=== PATIENT | female | born 1980 | race Caucasian/White ===

== ENCOUNTER 2018-02-16 14:55 | Emergency (ER) | payer OTHER, SELFPAY ==
[2018-02-16 15:53] LABS: Urine Blood TRACE (NEG); Urine Glucose NEGATIVE (NEG); Urine Protein NEGATIVE (NEG); Urine Specific Gravity <1.005 (1.005-1.030); Urine pH 6.5 (5.0-7.0)
[2018-02-16 16:14] LABS: Absolute Lymphocytes (CBC) 2.5 K/uL (0.7-4.9); Absolute Monocytes 0.5 K/uL (0.1-1.3); Absolute Neutrophil 9.7 K/uL (1.8-8.0); Basophils % 0.7 % (0-1.3); Eosinophils % 0.7 % (0-4.4); Hematocrit 43.6 % (36.0-45.0); Lymphocytes % 19.1 % (15.3-44.8); MCH 31.4 pg (27.0-35.0); MCV 95.3 fL (80-100); MPV 8.3 fL (7.6-11.3); Monocytes % 4.1 % (3.3-12.3); RBC Red Blood Cell Count 4.57 M/uL (3.86-4.86)
[2018-02-16 16:23] LABS: Bicarbonate 27 mEq/L (21-31); Glucose Level 84 mg/dL (65-120); Potassium 3.9 mEq/L (3.6-5.0); Sodium Level 135 mEq/L (135-145)
[2018-02-16 16:24] LABS: BUN Blood Urea Nitrogen 7 mg/dL (6-20)
--- NOTE | 2018-02-16 18:55 | RAD REPORT ---
EXAM DESCRIPTION: US - Transvaginal OB - 02/16/2018 3:56 pm CLINICAL HISTORY: with abdominal pain and vaginal bleeding COMPARISON: None. FINDINGS: The uterus measures 8 x 6 x 7 centimeters. A gestational sac is present within the endom etrium. Within this is a yolk sac and pole with a crown-rump length 0.6 centimeters is present. Cardiac activity was not visualized The right ovary is normal in size and echotexture. The left ovary was not seen. No significant free f luid is seen. IMPRESSION: Intrauterine an estimated gestational age 6 weeks 3 days WESLEY 10/09/2018. This may represent a normal in which the heart beat is not detected secondary to the early gesta tion. Follow up endovaginal sonogram in 1 week is recommended.
--- NOTE | 2018-02-16 19:26 | EDPHYS ---
Physician Documentation [facility] Name: Albina Cam Age: 38 yrs Sex: Female : 1980 Arrival Date: 02/16/2018 Time: 15:00 Bed 25 Private MD: Charly Corbin B ED Physician Ramone Bass HPI: 02/16 15:43 This 38 yrs old Female presents to ER via Ambulatory with complaints of pm1 Vaginal Bleeding, + Preg <12wks. 15:43 The patient presents to the emergency department with vaginal bleeding, described as pm1 spotting, with no clots. The estimated gestational age is 8 weeks. course: care: private OB physician, Dr. Jarquin, seen today, Ultrasound: the patient has not had an ultrasound, Risk/complications: no obvious risks or complications are appreciated. Previous pregnancies: in previous pregnancies patient has had vaginal delivery. Associated signs and symptoms: Pertinent positives: abdominal pain, Back pain, Pertinent negatives: chest pain, diarrhea, dysuria, fever, nausea, vomiting. The patient has not experienced similar symptoms in the past. The patient has been recently seen by a physician: Dr. Jarquin, prior to arrival for the same presenting ER complaint. 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 - Social history:: Smoking status: Patient/guardian denies using tobacco, the patient reports quitting approximately 0 years ago. - Ebola Screening: : Patient negative for fever greater than or equal to 101.5 degrees Fahrenheit, and additional compatible Ebola Virus Disease symptoms. ROS: 15:43 Constitutional: Negative for fever, chills, and weight loss, Eyes: Negative for injury, pm1 pain, redness, and discharge, ENT: Negative for injury, pain, and discharge, Neck: Negative for injury, pain, and swelling, Cardiovascular: Negative for chest pain, palpitations, and edema, Respiratory: Negative for shortness of breath, cough, wheezing, and pleuritic chest pain. 15:43 Back: Negative for injury and pain, MS/Extremity: Negative for injury and deformity, Skin: Negative for injury, rash, and discoloration, Neuro: Negative for headache, weakness, numbness, tingling, and seizure. 15:43 Abdomen/GI: Positive for abdominal cramps, Negative for nausea, vomiting, and diarrhea. 15:43 : Positive for vaginal bleeding, Negative for burning with urination, vaginal discharge. Exam: 15:43 Constitutional: This is a well developed, well nourished patient who is awake, alert, pm1 and in no acute distress. Head/Face: Normocephalic, atraumatic. Eyes: Pupils equal round and reactive to light, extra-ocular motions intact. Lids and lashes normal. Conjunctiva and sclera are non-icteric and not injected. Cornea within normal limits. Periorbital areas with no swelling, redness, or edema. ENT: Nares patent. No nasal discharge, no septal abnormalities noted. Tympanic membranes are normal and external auditory canals are clear. Oropharynx with no redness, swelling, or masses, exudates, or evidence of obstruction, uvula midline. Mucous membranes moist. Neck: Trachea midline, no thyromegaly or masses palpated, and no cervical lymphadenopathy. Supple, full range of motion without nuchal rigidity, or vertebral point tenderness. No Meningismus. Chest/axilla: Normal chest wall appearance and motion. Nontender with no deformity. No lesions are appreciated. Cardiovascular: Regular rate and rhythm with a normal S1 and S2. No gallops, murmurs, or rubs. No pulse deficits. Respiratory: Lungs have equal breath sounds bilaterally, clear to auscultation and percussion. No rales, rhonchi or wheezes noted. No increased work of breathing, no retractions or nasal flaring. Abdomen/GI: Soft, non-tender, with normal bowel sounds. No distension or tympany. No guarding or rebound. No evidence of tenderness throughout. Back: No spinal tenderness. No costovertebral tenderness. Full range of motion. Skin: Warm, dry with normal turgor. Normal color with no rashes, no lesions, and no evidence of cellulitis. MS/ Extremity: Pulses equal, no cyanosis. Neurovascular intact. Full, normal range of motion. 15:43 Neuro: Orientation: is normal, Motor: moves all fours. Vital Signs: 15:17 BP 121 / 84; Pulse 83; Resp 17; Temp 99.2; Pulse Ox 98% on R/A; aa5 17:44 BP 122 / 72; Pulse 72; Resp 18; Pulse Ox 100% on R/A; aj1 19:42 BP 131 / 89; Pulse 70; Resp 18; Pulse Ox 98% on R/A; aj1 MDM: 15:23 Patient medically screened. pm1 15:47 Data reviewed: vital signs. Data interpreted: Pulse oximetry: on room air is 98 %. pm1 Interpretation: normal. 19:02 Counseling: I had a detailed discussion with the patient and/or guardian regarding: the pm1 historical points, exam findings, and any diagnostic results supporting the discharge/admit diagnosis, lab results, radiology results, the need for outpatient follow up, an OB/Gyne specialist, to return to the emergency department if symptoms worsen or persist or if there are any questions or concerns that arise at home. 02/16 15:30 Order name: Quantitative Hcg; Complete Time: 17:00 pm1 02/16 15:30 Order name: Abo/rh Typing pm1 02/16 15:30 Order name: Basic Metabolic Panel; Complete Time: 17:00 pm1 02/16 15:30 Order name: CBC with Diff; Complete Time: 17:00 pm1 02/16 15:45 Order name: Urine Dipstick--Ancillary (enter results); Complete Time: 17:00 bd 02/16 15:45 Order name: Urine --Ancillary (enter results); Complete Time: 17:00 bd 02/16 15:30 Order name: Urine Test (obtain specimen); Complete Time: 16:02 pm1 02/16 15:30 Order name: IV Saline Lock; Complete Time: 16:02 pm1 02/16 15:30 Order name: Labs collected and sent; Complete Time: 16:02 pm1 02/16 15:30 Order name: NPO; Complete Time: 15:34 pm1 02/16 15:30 Order name: US Transvaginal Ob; Complete Time: 18:58 pm1 02/16 18:21 Order name: Antibody Screen EDCO 02/16 18:21 Order name: Rhogam EDCO 02/16 15:30 Order name: Urine Dipstick-Ancillary (obtain specimen); Complete Time: 16:02 pm1 Administered Medications: 19:08 Drug: RhoGAM (Human) 300 mcg Route: IM; Site: right deltoid; aj1 19:42 Follow up: Response: No adverse reaction aj1 Point of Care Testing: Urine : 19:42 hCG Reading: Positive; aj1 Disposition: 02/16/18 19:25 Discharged to Home. Impression: Threatened . - Condition is Stable. - Discharge Instructions: Threatened Miscarriage, Pelvic Rest. - Medication Reconciliation Form, Thank You Letter form. - Follow up: Emergency Department; When: As needed; Reason: Worsening of condition. Follow up: Charly Corbin; When: 2 - 3 days; Reason: Recheck today's complaints, Continuance of care, Re-evaluation by your physician. - Problem is new. - Symptoms have improved. Addendum: 02/18/2018 12:08 Co-signature as Attending Physician, Ramone Bass MD. g s Signatures: Dispatcher [employer] EDMS Evelin Hernandez RN RN aj1 Lanie Giordano RN RN aa5 Deshawn Fortune, CHIEF ADMINISTRATIVE OFFICER CHIEF ADMINISTRATIVE OFFICER pm1 Ramone Bass MD MD Corrections: (The following items were deleted from the chart) 02/16 19:43 19:25 02/16/2018 19:25 Discharged to Home. Impression: Threatened . Condition aj1 is Stable. Discharge Instructions: Threatened Miscarriage, Pelvic Rest. Forms are Medication Reconciliation Form, Thank You Letter, Antibiotic Education, Prescription Opioid Use. Follow up: Emergency Department; When: As needed; Reason: Worsening of condition. Follow up: Charly Corbin; When: 2 - 3 days; Reason: Recheck today's complaints, Continuance of care, Re-evaluation by your physician. Problem is new. Symptoms have improved. pm1
--- NOTE | 2018-02-16 19:26 | ER ---
Nurse's Notes [facility] Name: Albina Cam Age: 38 yrs Sex: Female : 1980 Arrival Date: 02/16/2018 Time: 15:00 Bed 25 Private MD: Charly Corbin B Diagnosis: Threatened Presentation: 02/16 15:10 Presenting complaint: Patient states: vaginal spotting that began today. Pt reports aa5 mild abd cramping. Pt states "I had a positive test about 4 weeks ago" Denies abd pain/cramping. Transition of care: patient was not received from another setting of care. Onset of symptoms was February 16, 2018. Risk Assessment: Do you want to hurt yourself or someone else? Patient reports no desire to harm self or others. Initial Sepsis Screen: Does the patient meet any 2 criteria? No. Patient's initial sepsis screen is negative. Does the patient have a suspected source of infection? No. Patient's initial sepsis screen is negative. Care prior to arrival: None. 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 - Social history:: Smoking status: Patient/guardian denies using tobacco, the patient reports quitting approximately 0 years ago. - Ebola Screening: : Patient negative for fever greater than or equal to 101.5 degrees Fahrenheit, and additional compatible Ebola Virus Disease symptoms. Screenin:31 Abuse screen: Denies threats or abuse. Denies injuries from another. Nutritional aj1 screening: No deficits noted. Tuberculosis screening: No symptoms or risk factors identified. 19:43 Fall Risk None identified. aj1 Assessment: 15:31 Obstetrical Assessment: Patient reports back pain. General: Appears in no apparent aj1 distress. comfortable. Pain: Denies pain. Neuro: Level of Consciousness is awake, alert, obeys commands, Oriented to person, place, time, situation, Speech is normal, Facial symmetry appears normal. Cardiovascular: Patient's skin is warm and dry. Respiratory: Airway is patent Respiratory effort is even, unlabored. GI: No signs and/or symptoms were reported involving the gastrointestinal system. : Reports vaginal bleeding that is spotty. EENT: No signs and/or symptoms were reported regarding the EENT system. Derm: No signs and/or symptoms reported regarding the dermatologic system. Skin is pink, warm \\T\\ dry. normal. Musculoskeletal: No signs and/or symptoms reported regarding the musculoskeletal system. Circulation, motion, and sensation intact. 16:54 Reassessment: Patient appears in no apparent distress at this time. No changes from aj1 previously documented assessment. Patient and/or family updated on plan of care and expected duration. Pain level reassessed. Patient is alert, oriented x 3, equal unlabored respirations, skin warm/dry/pink. 17:44 Reassessment: Patient appears in no apparent distress at this time. No changes from aj1 previously documented assessment. Patient and/or family updated on plan of care and expected duration. Pain level reassessed. Patient is alert, oriented x 3, equal unlabored respirations, skin warm/dry/pink. 18:45 Reassessment: Patient appears in no apparent distress at this time. No changes from aj1 previously documented assessment. Patient and/or family updated on plan of care and expected duration. Pain level reassessed. Patient is alert, oriented x 3, equal unlabored respirations, skin warm/dry/pink. 19:34 Reassessment: Patient appears in no apparent distress at this time. No changes from aj1 previously documented assessment. Patient and/or family updated on plan of care and expected duration. Pain level reassessed. Patient is alert, oriented x 3, equal unlabored respirations, skin warm/dry/pink. Vital Signs: 15:17 BP 121 / 84; Pulse 83; Resp 17; Temp 99.2; Pulse Ox 98% on R/A; aa5 17:44 BP 122 / 72; Pulse 72; Resp 18; Pulse Ox 100% on R/A; aj1 19:42 BP 131 / 89; Pulse 70; Resp 18; Pulse Ox 98% on R/A; aj1 ED Course: 15:00 Patient arrived in ED. sb2 15:00 Charly Corbin MD is Private Physician. sb2 15:17 Triage completed. aa5 15:18 Deshawn Fortune NP is PHCP. pm1 15:18 Ramone Bass MD is Attending Physician. pm1 15:18 Arm band placed on Patient placed in an exam room, on a stretcher. aa5 15:20 Evelin Hernandez RN is Primary Nurse. aj1 15:31 Patient has correct armband on for positive identification. Bed in low position. Call aj1 light in reach. Side rails up X 1. 15:31 No provider procedures requiring assistance completed. aj1 15:45 Initial lab(s) drawn, by me, sent to lab. Inserted saline lock: 20 gauge in left aj1 antecubital area, using aseptic technique. Blood collected. 15:56 US Transvaginal Ob In Process Unspecified. EDMS 15:58 Ultrasound completed. Patient tolerated well. Patient moved back from ultrasound. lc3 19:25 Charly Corbin MD is Referral Physician. pm1 19:34 IV discontinued, intact, bleeding controlled, No redness/swelling at site. Pressure aj1 dressing applied. Administered Medications: 19:08 Drug: RhoGAM (Human) 300 mcg Route: IM; Site: right deltoid; aj1 19:42 Follow up: Response: No adverse reaction aj1 Point of Care Testing: Urine : 19:42 hCG Reading: Positive; aj1 Outcome: 19:25 Discharge ordered by . pm1 19:42 Discharged to home ambulatory. aj1 19:42 Condition: good 19:42 Discharge instructions given to patient, Instructed on discharge instructions, follow up and referral plans. Demonstrated understanding of instructions, follow-up care. 19:43 Patient left the ED. aj1 Signatures: Dispatcher [employer] EDNM Evelin Hernandez, NADEEN RN aj1 Lanie Giordano RN RN aa5 Farhat Brock Patrick, NP SCHOOL CLEANER pm1 Jess De La O2
[2018-02-16 20:21] VITALS: TEMP 99.2
[2018-02-16 20:23] VITALS: BP 131/89; O2SAT 98
== END 2018-02-16 19:43 | disposition home or self-care (01) ==
LOC: ER 14:55
DX: O20.0 Threatened abortion (principal); Z3A.08 8 weeks gestation of pregnancy; Z87.891 Personal history of nicotine dependence
CPT/HCPCS: 36415; 76817; 80048; 81003; 81025; 84702; 85025; 86850; 86900; 86901; 96372; 99284; J2790

== ENCOUNTER 2018-02-25 07:04 | Day surgery (SDC) | payer OTHER ==
--- NOTE | 2018-02-24 13:40 | PREOPHP ---
Date of Admission: 02/25/2018 History Of Present Illness: A 38-year-old, 5, para 3, miscarriage 1, now with second miscarr iage during the first 12 weeks of . Options given including expectant management, infection , blood loss, anesthetic complications, injury to bladder, bowel, ureter, postoperative complications , clots in legs, and pneumonia. The patient wishes to proceed with D and C. She is Rh negative and has received one RhoGAM shot, but depending upon amount of bleeding, we may give another one while sh selvin is in the hospital. Family History: Diabetes in one of her aunts and her mother has hypertension. Past Surgical History: The patient has had wrist surgeries x2, ankle surgery x1, and a D and C in for a miscarriage. Social History: Does not smoke. Physical Examination: HEENT: Clear. Pupils equal, round, and reactive to light and accommodation. Conjunctivae well perf used. No oral, lingual, or buccal lesions. Chest and Lungs: Clear. Heart: Without murmurs, thrills, heaves, or rubs. Breasts: Not examined. Abdomen: Clear uterus is in the 8-9 weeks size. Extremities: Clear without edema, cyanosis, or clubbing. Assessment And Plan: We will bring her back this afternoon for laminaria insertion and then proceed with D and C tomorrow. Full preoperative talk. SERGEY/LUIS ALFREDO Voice ID: [id number]
[2018-02-24 14:04] LABS: Absolute Lymphocytes (CBC) 2.2 K/uL (0.7-4.9); Absolute Monocytes 0.5 K/uL (0.1-1.3); Absolute Neutrophil 7.4 K/uL (1.8-8.0); Basophils % 0.7 % (0-1.3); Eosinophils % 1.1 % (0-4.4); Hematocrit 37.6 % (36.0-45.0); Lymphocytes % 21.1 % (15.3-44.8); MCH 31.8 pg (27.0-35.0); MCV 94.9 fL (80-100); MPV 8.2 fL (7.6-11.3); Monocytes % 4.9 % (3.3-12.3); RBC Red Blood Cell Count 3.96 M/uL (3.86-4.86)
[2018-02-24 14:18] LABS: Urine Appearance CLEAR; Urine Bilirubin NEGATIVE (NEG); Urine Blood 3+ (NEG); Urine Color YELLOW; Urine Glucose NEGATIVE (NEG); Urine Protein NEGATIVE (NEG); Urine Urobilinogen 0.2 mg/dL (0.2-1.0)
[2018-02-24 14:22] LABS: Urine Microscopic Reflex ORDER UMIC
[2018-02-24 14:29] LABS: Protime INR 0.94
[2018-02-24 14:56] LABS: Urine Bacteria <20 /HPF (<20); Urine RBC >50 /HPF (NONE SEEN)
[2018-02-24 14:57] LABS: Urine Culture Reflex Order NOT NEEDED
--- NOTE | 2018-02-24 17:34 | PREOPHP ---
Date of Admission: 02/25/2018 Addendum: The patient returns this afternoon for laminaria insertion. Cervix cleaned with iodine an d laminaria tent small size, placed packing 4 x 4, placed into the vagina to secure it. She will keagan selvin doxycycline tonight before bedtime. We have given her 6 total. We will also give her Cytotec to doris montalvo taken after she gets home from the hospital tomorrow and some tramadol for the cramping she is jose antunez. Full discussion. H and P has already been dictated. SERGEY/LUIS ALFREDO Voice ID: [id number]
[~2018-02-25 07:04] MED LIST: OXYTOCIN/LR 20 UNIT/1,000 ML BAG IV SCH
[2018-02-25] MEDS ORDERED: OXYTOCIN 10 UNIT/ML ML IV ONE (07:42)
[2018-02-25] MEDS ORDERED: SILVER NITRATE 1 APPL TOP ONE (07:42)
[2018-02-25] MEDS ORDERED: METHYLERGONOVINE 0.2MG/ML AMP IM ONE (07:42)
[2018-02-25] MEDS ORDERED: CEFAZOLIN/SWI 1gm 1 GM/10 ML SYR ONE (08:48)
[2018-02-25] MEDS ORDERED: FENTANYL CITR 100 MCG/2 ML ONE (08:50)
[2018-02-25] MEDS ORDERED: MIDAZOLAM HCL 2 MG/2 ML INJ ONE (08:50)
[2018-02-25] MEDS ORDERED: PROPOFOL 200 MG/20 ML VIAL IV ONE (08:50)
[2018-02-25] MEDS ORDERED: MEPERIDINE HCL 25 MG/0.5 ML ONE (09:32)
[2018-02-25] MEDS ORDERED: HYDROCODONE/APAP 10/325 TAB ONE (10:52)
--- NOTE | 2018-02-25 11:19 | OP ---
Surgeon: Charly Corbin MD Indications: Albina Cam is a 38-year-old female with first trimester embryonic loss. Full discus aj about infection, blood loss, anesthetic complications, injury to bladder, bowel, ureter, postope rative complications, clots in legs, pneumonia. Expectant management also discussed. The patient is Rh negative and will receive RhoGAM before she leaves. Procedure: General anesthesia was employed, endotracheal intubation. Laminaria tent and packing kriss clark the evening prior were removed. Cervix already admitted with the largest dilator. A 10-mm curve d suction curette was used to evacuate the obviously necrotic intrauterine contents. A sharp curette ment followed by a second suction and a second sharp curettement. Minimal blood loss less than 25 cc . The patient tolerated all procedures well and was transferred to the recovery room in good conditi on. Final Diagnoses: First trimester embryonic loss, suction curettage for uterine evacuation and RhoGAM to be administered. SERGEY/LUIS ALFREDO Voice ID: [id number] Report ID: [id number]
[2018-02-25 11:35] VITALS: BP 115/79; TEMP 98.5; O2SAT 100
--- NOTE | 2018-02-25 18:38 | OP ---
Surgeon: Charly Corbin MD Hospital Course: The patient underwent suction and curettage for uterine evacuation and first trimes ter embryonic demise. She is Rh negative and will receive RhoGAM before she leaves. Had only 25 cc or less blood loss. Tolerated all procedures well. She will continue to take cytotoxic 1 every 4 ho urs for 5 doses when she leaves the hospital. She has had doxycycline last night and will take 5 mor e 1 every 12 hours. She has also had tramadol for postoperative pain in the form of cramping, althou gh I think that will be minimal. She is to report back to my office in 1 week to report any temperat ure elevation of 100 degrees or greater, severe pain, or any other type of problems. Final Diagnosis: First trimester embryonic demise, suction and curettage for uterine evacuation, gen eral anesthesia. RhoGAM administered. SERGEY/LUIS ALFREDO Voice ID: [id number] Report ID: [id number]
== END 2018-02-25 11:20 | disposition home or self-care (01) ==
LOC: OR 07:04
PROVIDERS: ATTEND Specialist
PROC: 10D17ZZ Extraction of Products of Conception, Retained, Via Natural or Artificial Opening (ICD-10-PCS; principal; 2018-02-25 08:15)
DX: O02.1 Missed abortion (principal); Z67.91 Unspecified blood type, Rh negative; Z29.13 Encounter for prophylactic Rho(D) immune globulin; Z83.3 Family history of diabetes mellitus; Z82.49 Family history of ischemic heart disease and other diseases of the circulatory system
CPT/HCPCS: 36415; 81003; 81015; 85025; 85461; 85610; 86850; 86870; 86900; 86901; 88305; J0690; J2175; J2210; J2250; J2590; J2790; J3010

== ENCOUNTER 2019-02-23 00:22 | Inpatient (IN) | payer OTHER ==
[2019-02-23] MEDS ORDERED: MEPERIDINE HCL 25 MG/0.5 ML IV PRN (04:20)
[2019-02-23] MEDS ORDERED: Ringers Lactate 1,000 ML IV PRN (04:20)
[2019-02-23] MEDS ORDERED: PROMETHAZINE 25 MG/ML VIAL IM PRN (04:20)
[2019-02-23] MEDS ORDERED: CARBOPROST TROME 250 MCG/ML IM PRN (04:20)
[2019-02-23] MEDS ORDERED: BUTORPHANOL 1 MG/ML INJ IV PRN (04:20)
[2019-02-23] MEDS ORDERED: OXYTOCIN/LR 20 UNIT/1,000 ML BAG IV SCH ×2 (05:00→16:00)
[2019-02-23] MEDS ORDERED: Ringers Lactate 1,000 ML IV SCH (05:00)
[2019-02-23] MEDS ORDERED: METHYLERGONOVINE 0.2MG/ML AMP IM ONE (05:35)
[2019-02-23 07:11] LABS: RPR Titer ND
[2019-02-23 07:15] LABS: Urine Appearance CLEAR; Urine Bilirubin NEGATIVE (NEG); Urine Blood NEGATIVE (NEG); Urine Color YELLOW; Urine Glucose NEGATIVE (NEG); Urine Protein NEGATIVE (NEG); Urine Specific Gravity <=1.005 (1.005-1.030); Urine Urobilinogen 0.2 mg/dL (0.2-1.0); Urine pH 6.5 (5.0-7.0)
[2019-02-23 07:20] LABS: Absolute Lymphocytes (CBC) 2.4 K/uL (0.7-4.9); Absolute Monocytes 0.5 K/uL (0.1-1.3); Basophils % 0.3 % (0-1.3); Eosinophils % 1.1 % (0-4.4); Hematocrit 38.5 % (36.0-45.0); Lymphocytes % 26.2 % (15.3-44.8); MPV 9.1 fL (7.6-11.3); Monocytes % 5.8 % (3.3-12.3); RBC Red Blood Cell Count 4.11 M/uL (3.86-4.86)
[2019-02-23 07:45] LABS: Urine Bacteria NONE SEEN /HPF (<20); Urine Culture Reflex Order NOT NEEDED; Urine RBC NONE SEEN /HPF (NONE SEEN)
[2019-02-23] MEDS ORDERED: ROPIVACAINE HCL 0.2% 20ML AMP IV SCH (11:00)
[2019-02-23] MEDS ORDERED: FENTANYL CITR 100 MCG/2 ML ONE (11:08)
[2019-02-23] MEDS ORDERED: ROPIVACAINE HCL 100 ML IV ONE (11:08)
[2019-02-23] MEDS ORDERED: FENTANYL/BUPIVACAINE/NS/PF 200 MCG/100 ML BAG EP ONE (11:15)
--- NOTE | 2019-02-23 12:09 | PREOPHP ---
Date of Admission: 02/23/2019 This is a 39-year-old, 6, para 3, at 39 weeks and 3 days for labor induction, 2.5 cm, 50% eff aced, vertex, well applied. FHTs normal, reactive. Rupture of membranes, clear fluid. The patient had mild shoulder dystocia with the last delivery. assisted delivery. An 8 pounds, 4 ounce baby. This baby is thought to be in the same general signs range +/-1 pound. Full discussion antepa rtum about shoulder dystocia and options including . The patient has chosen for vaginal del ardha. Full labor talk given. The patient will probably be requesting epidural once she gets into a more advanced labor. She is Rh negative. She has had RhoGAM during the . Beta strep nega tive. Full labor talk given. SERGEY/LUIS ALFREDO Voice ID: [id number]
--- NOTE | 2019-02-23 14:54 | PN ---
The patient is now 3.5 cm, 60% effaced, vertex, -1 station. Requesting epidural. Pros and cons of t his discussed. We are hydrating her, and Anesthesia has been notified. Hopefully, this will not slo w the labor down. The baby is occiput posterior. Full discussion about pelvic rock. SERGEY/LUIS ALFREDO Voice ID: [id number] Report ID: [id number]
[2019-02-23] MEDS ORDERED: DIPHENHYDRAMINE 25 MG TAB/CAP PO PRN (15:54)
[2019-02-23] MEDS ORDERED: ACETAMINOPHEN 500 MG TAB PO PRN (15:54)
[2019-02-23] MEDS ORDERED: Oxycodone HCl/Acetaminophen 1 TAB TAB PO PRN (15:54)
[2019-02-23] MEDS ORDERED: IBUPROFEN 200 MG TAB PO PRN (15:54)
[2019-02-23] MEDS ORDERED: BISACODYL 10 MG RECTAL SUPP RECT PRN (15:54)
[2019-02-23] MEDS ORDERED: DOCUSATE NA/SENNA CONC 1 TAB PO PRN (15:54)
[2019-02-23] MEDS ORDERED: Ringers Lactate 1,000 ML IV ONE (17:02)
--- NOTE | 2019-02-23 17:35 | PN ---
The patient is 4 cm on 20 milliunits of Pitocin. Baby looks good. We will go up to 22 now, possibly 24. She is still doing pelvic rock. She still is so numb she cannot really even tell if she is hav ing contractions. In the next hour or so, if she does not change, we need to go down on the maintena nce dose of the epidural. SERGEY/LUIS ALFREDO Voice ID: [id number] Report ID: [id number]
[2019-02-23] MEDS ORDERED: CEFAZOLIN/NS 1gm 1 GM/50 ML BAG IVPB ONE (17:41)
[2019-02-23] MEDS: Oxycodone HCl/Acetaminophen 1 TAB TAB PO PRN ×2 (18:00→21:57)
[2019-02-23] MEDS ORDERED: CEFAZOLIN/SWI 1gm 1 GM/10 ML SYR IVP ONE (19:00)
[2019-02-23 21:02] LABS: RPR (Rapid Plasma Reagin) NON-REACT (NON-REACT)
--- NOTE | 2019-02-24 02:03 | OP ---
Surgeon: Charly Corbin MD A 39-year-old, 6, para 3, at 39 weeks and 3 days, came in for labor induction. 2.5 cm on adm ission. Rupture of membranes, clear fluid. Patient requested and received epidural quite early in t he labor. This gave excellent effect during the remainder of labor and delivery. Second stage of 20 -30 minutes or less. Spontaneous vaginal delivery of an estimated 8-pound plus or minus female. Apg ars 9 and 9. Mild shoulder dystocia. Flexion of the legs and suprapubic pressure affected easy deli very. First degree small laceration repaired, 2-0 chromic, approximately 4-5 stitches. Christaine daron garcia of the placenta, which was inspected and noted to be intact and normal. Less than 300 cc blood loss. Rh negative. Has received RhoGAM during the . Immune to Rubella. Negative beta st rep screen. Tolerated all procedures well. Final Diagnoses: Term intrauterine , 39 weeks 3 days, epidural anesthesia. Vaginal deliver y. Mild shoulder dystocia. True knot in the cord-loose. NBC/MODL Voice ID: [id number] Report ID: [id number]
[2019-02-24 04:32] VITALS: BMI 27.4
--- NOTE | 2019-02-24 08:08 | PN ---
Subjective: Patient has an epidural now. She really cannot tell us if she is having contractions. Her cervix has not changed since the last exam over an hour and a half to 2 hours ago. Pitocin needs to be increased more regularly, it has not been in the last hour or two. She is 3-1/2, 50-60%, -1 st ation. Fluid is clear. FHTs look normal but as I said, she is completely numb. Baby is posterior. She is doing pelvic rocking but I think the contractions need to be more firm. The nurse was instru cted to go up every 30 minutes on the Pitocin as instructed. SERGEY/LUIS ALFREDO Voice ID: [id number] Report ID: [id number]
[2019-02-24] MEDS ORDERED: Rho(D) IG (HUMAN) 300 MCG SYR IM ONE (10:15)
--- NOTE | 2019-02-24 13:04 | DS ---
A 39-year-old, 6, para 3, 39 weeks 3 days. Delivered of an estimated 8-pound female Apgars 9 and 9. Epidural anesthesia. Small first degree laceration, repaired with 2-0 chromic. Li valdez of the placenta, inspected and noted to be intact and normal. A 300 cc or less blood loss. R h negative. Has received RhoGAM during and will receive RhoGAM again before she is dismiss ed. She has had her Tdap shot. ; afebrile, ambulating and voiding. Lochia is normal. Fu ll discharge instructions given. Dismissed with tramadol, although she may like to take Motrin inste ad. No post epidural problems. Final Diagnoses: Term intrauterine , 39 weeks 3 days. Vaginal delivery. Epidural anesthes ia. RhoGAM pending. SERGEY/LUIS ALFREDO Voice ID: [id number] Report ID: [id number]
[2019-02-24 16:29] VITALS: BP 124/73; TEMP 97.1
[2019-02-27 06:53] LABS: HBsAG Nonreactive (Nonreactive)
== END 2019-02-24 17:15 | disposition home or self-care (01) | DRG 807 ==
LOC: 2ND-WC 04:15
PROVIDERS: ADMIT Specialist; ATTEND Specialist
PROC: 10E0XZZ Delivery of Products of Conception, External Approach (ICD-10-PCS; principal; 2019-02-23)
PROC: 0HQ9XZZ Repair Perineum Skin, External Approach (ICD-10-PCS; 2019-02-23)
PROC: 3E033VJ Introduction of Other Hormone into Peripheral Vein, Percutaneous Approach (ICD-10-PCS; 2019-02-23)
DX: O70.0 First degree perineal laceration during delivery (principal); Z37.0 Single live birth; Z3A.39 39 weeks gestation of pregnancy; O66.0 Obstructed labor due to shoulder dystocia; O69.2XX0 Labor and delivery complicated by other cord entanglement, with compression, not applicable or unspecified; O26.893 Other specified pregnancy related conditions, third trimester; Z67.91 Unspecified blood type, Rh negative
CPT/HCPCS: 36415; 81001; 85025; 85461; 86592; 86850; 86870; 86901; 87340; J0595; J2210; J2550; J2590; J2790; J2795; J3010